=== PATIENT | female | born 1965 | race Caucasian/White ===

== ENCOUNTER 2025-05-13 15:24 | Observation (INO) | payer MEDICARE, OTHER ==
[2025-05-13 17:19] VITALS: BMI 26.6
[2025-05-13] MEDS: Pantoprazole 40 MG DR.TAB PO SCH (20:59)
[2025-05-13] MEDS: Pregabalin 50 MG CAP PO SCH (21:00)
[2025-05-13 21:08] LABS: Troponin I Less than 0.010 ng/mL (< 0.028)
[2025-05-14 04:27] LABS: #Basophils 0.04 10x3/uL (0.0-0.2); #Eosinophils 0.37 10x3/uL (0.0-0.5); #Monocytes 1.46 10x3/uL (0.0-1.1); #Neutrophils 4.16 10x3/uL (1.5-8.4); %Basophils 0.4 % (0.0-2.0); %Eosinophils 3.6 % (0.0-6.0); %Lymphocytes 41.0 % (18.0-47.0); %Monocytes 14.2 % (0.0-10.0); %Neutrophils 40.6 % (40.0-75.0); Hematocrit 45.5 % (34.9-44.5); Hemoglobin 14.7 g/dL (12.0-15.5); Mean Corpuscular Hemoglobin 29.7 pg (27.0-33.0); Mean Corpuscular Volume 91.9 fL (81.6-98.3); Platelet Count 456 10x3/uL (150-450); Red Blood Cell (RBC) Count 4.95 10x6/uL (3.90-5.03); White Blood Cell (WBC) Count 10.25 10x3/uL (3.5-10.5)
[2025-05-14 04:39] LABS: ALT (SGPT) 18 U/L (Less than 34); AST (SGOT) 31 U/L (11-34); Albumin 3.5 g/dL (3.1-4.5); Alkaline Phosphatase 126 U/L (40-110); Anion Gap 12 mmol/L (10-20); BUN (Urea Nitrogen) 17 mg/dL (9.8-20.1); Bilirubin, Total 0.3 mg/dL (0.3-1.2); Calc. Creatinine Clearance 122 mL/min (70-130); Calcium 8.9 mg/dL (7.8-10.44); Carbon Dioxide 22 mmol/L (22-29); Chloride 109 mmol/L (98-107); Globulin 3.3 g/dL (2.4-3.5); Glucose 165 mg/dL (70-105); Magnesium 2.1 mg/dL (1.6-2.6); Potassium 3.9 mmol/L (3.5-5.1); Sodium 139 mmol/L (136-145)
[2025-05-14 04:49] LABS: Cardiac Risk 4.4 (Less than 4.5); Cholesterol 185 mg/dl (< 200 Desired); HDL Cholesterol 42 mg/dL (>60 Neg Risk); LDL Cholesterol, Calculated 110 mg/dL; Triglycerides 167 mg/dL (Less than 150)
[2025-05-14 08:05] VITALS: BP 161/100; TEMP 98
[2025-05-14] MEDS: Enoxaparin 40 MG (0.4 mL) SYRINGE SC SCH (09:16)
[2025-05-14] MEDS: Carvedilol 6.25 MG TAB PO SCH (09:16)
[2025-05-14] MEDS ORDERED: Carvedilol 6.25 MG TAB PO SCH (17:00)
== END 2025-05-14 11:55 | disposition home or self-care (01) ==
LOC: CSHTELE 16:36
PROVIDERS: ADMIT Internal Medicine; ATTEND Internal Medicine
PROC: B24BZZZ Ultrasonography of Heart with Aorta (ICD-10-PCS; principal; 2025-05-14)
DX: R07.2 Precordial pain (principal); R00.2 Palpitations; R06.02 Shortness of breath; R11.0 Nausea; R61 Generalized hyperhidrosis; R73.03 Prediabetes; I10 Essential (primary) hypertension; I25.10 Atherosclerotic heart disease of native coronary artery without angina pectoris; E78.5 Hyperlipidemia, unspecified; M06.9 Rheumatoid arthritis, unspecified; K21.9 Gastro-esophageal reflux disease without esophagitis; Z96.653 Presence of artificial knee joint, bilateral; Z87.891 Personal history of nicotine dependence; Z90.710 Acquired absence of both cervix and uterus; Z90.89 Acquired absence of other organs; Z90.49 Acquired absence of other specified parts of digestive tract; Z88.5 Allergy status to narcotic agent; Z88.0 Allergy status to penicillin; Z88.2 Allergy status to sulfonamides; Z79.899 Other long term (current) drug therapy
CPT/HCPCS: 36415; 80053; 80061; 83735; 84484; 85025; 93306; G0378